=== PATIENT | female | born 1975 | race Caucasian/White ===

== ENCOUNTER 2018-03-31 06:42 | Day surgery (SDC) | payer OTHER ==
[2018-03-27 17:20] VITALS: BMI 44.6
[~2018-03-31 06:42] MED LIST: GENTAMICIN SO4 80 MG/2 ML VIAL IVPB ONE; IOHEXOL 300 MG/ML INFUS..BTL IV ONE
[2018-03-31] MEDS ORDERED: PROPOFOL 20 ML ONE ×3 (07:47→08:52)
[2018-03-31] MEDS ORDERED: fentaNYL CITRATE 250 MCG/5 ML VIAL ONE (07:48)
[2018-03-31] MEDS ORDERED: MIDAZOLAM HCL 2 MG/2 ML SINGLE DOSE VIAL ONE (07:48)
[2018-03-31] MEDS ORDERED: LIDOCAINE HCL/PF 2% SDV 5ML VIAL ONE ×2 (08:00→08:48)
[2018-03-31] MEDS ORDERED: ceFAZolin SODIUM 1 GM VIAL ONE ×2 (08:00→08:48)
[2018-03-31] MEDS ORDERED: DEXAMETHASONE SOD PHOSPHATE 4 MG/1 ML VIAL ONE ×2 (08:00→08:48)
[2018-03-31] MEDS ORDERED: SODIUM CHLORIDE 0.9% P/F 10 ML VIAL IJ ONE ×2 (08:00→08:48)
[2018-03-31] MEDS ORDERED: KETOROLAC TROMETHAMINE 30 MG/1 ML VIAL ONE (08:00)
[2018-03-31] MEDS ORDERED: ceFAZolin SODIUM 1 GM VIAL IVPB ONE (08:10)
[2018-03-31] MEDS ORDERED: GENTAMICIN SO4 80 MG/2 ML VIAL IVPB ONE (08:15)
[2018-03-31] MEDS ORDERED: ROCURONIUM BROMIDE 50 MG/5 ML VIAL ONE (08:15)
[2018-03-31] MEDS ORDERED: FUROSEMIDE 40 MG/4 ML INJECTABLE VIAL ONE ×3 (08:23→08:29)
[2018-03-31] MEDS ORDERED: GLYCOPYRROLATE 0.2 MG/1 ML VIAL ONE (08:34)
[2018-03-31] MEDS ORDERED: NEOSTIGMINE METHYLSULFATE 0.5 MG/1 ML - 10 ML MDV ONE (08:35)
[2018-03-31] MEDS ORDERED: oxyCODONE HCL 5 MG TABLET PO PRN ×2 (08:54→09:35)
--- NOTE | 2018-03-31 08:56 | OP ---
Operative Note - Note: Operative Date: 03/31/18 Pre-Operative Diagnosis: obstructing LUPJ stone Operation: cysto/laser litho/stent Findings: as above plus UPJ/prox ureter stricture Surgeon: Yusuf Cross Anesthesia: General Specimens Removed: stone frags Estimated Blood Loss (mls): 2 Drains & Tubes with Location: 7fr, 24cm stent Operative Report Dictated: Yes
[2018-03-31] MEDS ORDERED: ELECTROLYTE-148 SOLN 1,000 ML IV SCH (09:00)
[2018-03-31] MEDS ORDERED: ONDANSETRON 4 MG/2 ML VIAL IVPUSH PRN (09:35)
--- NOTE | 2018-03-31 09:41 | OP ---
DATE OF OPERATION: 03/31/2018 PROCEDURE: Cystoscopy, retrograde pyelogram, ureteroscopy, laser lithotripsy, stone basketing, stent placement. SURGEON: Isis Ndiaye MD INDICATION: Patient is a 42-year-old female with an obstructing 1-cm stone at the right UPJ. She will be taken to the OR for ureteroscopy and laser lithotripsy after reviewing treatment options. Risks, benefits, and alternatives were discussed in detail. Informed consent was obtained. DESCRIPTION OF PROCEDURE: Patient was taken to the OR and placed supine on the table. After cardiac monitoring was administered and general anesthesia was established, she was prepped and draped in dorsal lithotomy position. She was given 2 g of Ancef and 1 mL of gentamycin. The cystoscope was introduced without difficulty and urethra was normal. The bladder was visualized. No tumors or stones were noted in the bladder. At this point, attention was turned to the left ureteral orifice. It was intubated with ureteral catheter. Contrast was injected for retrograde pyelogram. There was hydronephrosis to the UPJ where a stone was seen obstructing. A guidewire was advanced beyond the stone. A dual lumen catheter was advanced to the and guidewire was advanced to the level of the stone. Dual lumen catheter was removed, and over one of the wires, a flexible ureteroscope was advanced to the level of the stone. The stone was approximately 1 cm in size and seen impacting at the UPJ. Using the 365-micron laser fiber, the stone was pulverized to fine dust and 2- to 3-mm fragments. Some of the fragments were then removed with the [facility] evacuator. Inspection of the UPJ area revealed narrowing and stricture but I was able to negotiate the scope beyond this area into the kind, and there was nothing abnormal within the kidney. The ureteroscope was then removed, and a 7-Danish 24-cm double pigtail stent was then advanced in a monorail fashion. Fluoroscopy confirmed the stent being in position with a proximal curl in the upper pole in the left side and the distal curl in the bladder. The patient was then awoken from anesthesia, transferred to recovery in stable condition. There were no complications. Estimated blood loss was minimal. ISIS NDIAYE M.D. [id number]
[2018-03-31] MEDS ORDERED: LACTATED RINGERS SOLUTION 1,000 ML IV SCH (09:45)
[2018-03-31] MEDS ORDERED: ACETAMINOPHEN 325 MG TABLET (FP) ONE (11:08)
[2018-03-31] MEDS ORDERED: ACETAMINOPHEN 325 MG TABLET (FP) PO ONE (11:12)
[2018-03-31 12:37] VITALS: BP 136/78; PULSE 76; TEMP 98.4
--- NOTE | 2018-04-01 09:08 | PATH ---
Surgical Pathology Report Patient Name: JOSE MANRIQUE [facility]. Rec. #: [id number] /Age/Gender: 1975 (Age: 42) / F Account: [id number] Location: [facility] Taken: 03/31/2018 Received: 03/31/2018 Reported: 04/01/2018 Physicians: Yusuf Cross M.D. Specimen(s) Received LEFT URETERAL CALCULI Clinical History Left ureteral stone Final Diagnosis URETERAL STONE, LEFT, LITHOTRIPSY AND STONE BASKETING: URETERAL CALCULI. MACROSCOPIC DIAGNOSIS. Electronically Signed Maria T Menchaca M.D. Gross Description Received fresh labeled "left ureteral stone," are 2 adams, irregular calculi averaging 0.3 cm in greatest dimension. The specimen is sent for chemical analysis. /03/31/201803/31/2018
[2018-04-07 14:14] LABS: CA OXALATE MONOHYDR. 94 % (.); WEIGHT 21.1 mg (.)
== END 2018-03-31 12:40 | disposition home or self-care (01) ==
LOC: JASU-SURG 06:42
PROVIDERS: ATTEND Urology
PROC: 0TF78ZZ Fragmentation in Left Ureter, Via Natural or Artificial Opening Endoscopic (ICD-10-PCS; principal; 2018-03-31 07:30)
PROC: 0T778DZ Dilation of Left Ureter with Intraluminal Device, Via Natural or Artificial Opening Endoscopic (ICD-10-PCS; 2018-03-31 07:30)
DX: N20.1 Calculus of ureter (principal)
CPT/HCPCS: 36415; 76000-TC-FY; 82360; 84703; 88300-TC; 94760

== ENCOUNTER 2024-12-03 13:57 | Observation (INO) | payer OTHER ==
[2024-12-03 15:16] LABS: EPI CELLS 14 /uL (0-25.1); HYALINE CASTS 1 /uL (0-3.1); URINE APPEARANCE TURBID; URINE BACTERIA 1011 /uL (0-1359); URINE BILIRUBIN NEGATIVE (NEGATIVE); URINE COLOR YELLOW; URINE GLUCOSE (UA) NEGATIVE (NEGATIVE); URINE KETONE NEGATIVE (NEGATIVE); URINE LEUK ESTERASE 1+ (NEGATIVE); URINE NITRITE NEGATIVE (NEGATIVE); URINE PROTEIN NEGATIVE (NEGATIVE); URINE RBC 28 /uL (0-23.9); URINE UROBILINOGEN 0.2 mg/dL (0.2-1.0); URINE WBC 93 /uL (0-25.8)
[2024-12-03 15:19] LABS: ABSOLUTE IMMATURE GRANULOCYTES 0.01 x10^3/uL (0.0-0.031); BASOPHILS # 0.04 x10^3/uL (0.01-0.08); EOSINOPHIL % 3.7 % (0.7-5.8); EOSINOPHILS # 0.25 x10^3/uL (0.04-0.36); HEMATOCRIT 39.5 % (34.1-44.9); HEMOGLOBIN 12.4 g/dL (11.2-15.7); MCHC 31.4 g/dl (32.2-35.5); MEAN PLT VOLUME 9.7 fl (9.4-12.3); MONOCYTE # 0.32 x10^3/uL (0.24-0.86); MONOCYTE % 4.8 % (4.7-12.5); PLATELET COUNT 234 x10^3/uL (182-369); RDW 12.6 % (12.2-17.1)
[2024-12-03 15:27] LABS: INR 1.13 (0.83-1.09); PROTHROMBIN TIME (PATIENT) 12.3 SEC (9.7-13.0)
[2024-12-03 15:29] LABS: ACTIVATED PTT 32.6 SECONDS (25.2-36.5)
[2024-12-03 15:41] LABS: POTASSIUM 4.6 mmol/L (3.5-5.1)
[2024-12-03 15:43] LABS: BLOOD UREA NITROGEN 18.8 mg/dL (7-18); CALCIUM 10.6 mg/dL (8.5-10.1)
[2024-12-03 15:45] LABS: CREATININE 1.1 mg/dL (0.55-1.3)
[2024-12-03 15:47] LABS: BILIRUBIN,TOTAL 0.5 mg/dL (0.2-1); TOT PROT 8.2 g/dl (6.4-8.2)
[2024-12-03] MEDS ORDERED: TRIMETHOPRIM IVPB ONE (16:00)
[2024-12-03] MEDS ORDERED: WATER IVPB ONE (16:00)
[2024-12-03] MEDS ORDERED: SULFAMETHOXAZOLE IVPB ONE (16:00)
[2024-12-03] MEDS ORDERED: DEXTROSE 5% IVPB ONE (16:00)
[2024-12-03] MEDS ORDERED: ACETAMINOPHEN 1000 MG/100 ML BAG IVPB PRN (17:13)
[2024-12-03] MEDS ORDERED: ONDANSETRON 4 MG/2 ML VIAL IVPUSH PRN ×4 (17:14→23:31)
[2024-12-03 17:20] VITALS: BMI 45.7
[2024-12-03] MEDS: INSULIN ASPART SLIDING SCALE (NOVOLOG) 1 VIAL SQ SCH (17:25)
[2024-12-03] MEDS: SULFAMETHOXAZOLE IVPB ONE (17:32)
[2024-12-03] MEDS: TRIMETHOPRIM IVPB ONE (17:32)
[2024-12-03] MEDS: DEXTROSE 5% IVPB ONE (17:32)
[2024-12-03] MEDS: WATER IVPB ONE (17:32)
[2024-12-03] MEDS: SULFAMETHOXAZOLE 80 MG/TRIMETHOPRIM 16 MG/ML VIAL IVPB ONE (17:36)
[2024-12-03 18:10] LABS: HCV DIAGNOSTIC IN-HOUSE W/RFLX NON-REACTIVE (NONREACTIVE)
[2024-12-03 18:12] LABS: HIV INTERPRETATION NEGATIVE (NEGATIVE)
[2024-12-03] MEDS ORDERED: PROPOFOL 20 ML ONE (22:13)
[2024-12-03] MEDS ORDERED: MIDAZOLAM HCL 2 MG/2 ML SINGLE DOSE VIAL ONE (22:14)
[2024-12-03] MEDS ORDERED: LACTATED RINGERS SOLUTION 1,000 ML IV SCH (22:15)
[2024-12-03] MEDS: LACTATED RINGERS SOLUTION 1,000 ML IV SCH (23:55)
[2024-12-04 00:30] VITALS: RESP 18
[2024-12-04] MEDS ORDERED: DEXTROSE 5% IVPB ONE (04:00)
[2024-12-04] MEDS ORDERED: TRIMETHOPRIM IVPB ONE (04:00)
[2024-12-04] MEDS ORDERED: SULFAMETHOXAZOLE IVPB ONE (04:00)
[2024-12-04] MEDS ORDERED: WATER IVPB ONE (04:00)
[2024-12-04] MEDS ORDERED: SULFAMETHOXAZOLE 80 MG/TRIMETHOPRIM 16 MG/ML VIAL IVPB ONE (04:00)
[2024-12-04] MEDS: ACETAMINOPHEN 1000 MG/100 ML BAG IVPB PRN (04:50)
[2024-12-04] MEDS: INSULIN ASPART SLIDING SCALE (NOVOLOG) 1 VIAL SQ SCH (06:27)
[2024-12-04 08:39] LABS: ABSOLUTE IMMATURE GRANULOCYTES 0.02 x10^3/uL (0.0-0.031); BASOPHILS # 0.02 x10^3/uL (0.01-0.08); EOSINOPHIL % 0.2 % (0.7-5.8); EOSINOPHILS # 0.01 x10^3/uL (0.04-0.36); HEMATOCRIT 39.8 % (34.1-44.9); HEMOGLOBIN 12.1 g/dL (11.2-15.7); MCHC 30.4 g/dl (32.2-35.5); MEAN CELL VOLUME 84.5 fl (79.4-94.8); MEAN PLT VOLUME 10.5 fl (9.4-12.3); MONOCYTE # 0.15 x10^3/uL (0.24-0.86); MONOCYTE % 2.4 % (4.7-12.5); PLATELET COUNT 230 x10^3/uL (182-369); RDW 12.9 % (12.2-17.1)
[2024-12-04 09:07] LABS: POTASSIUM 4.9 mmol/L (3.5-5.1)
[2024-12-04 09:19] LABS: CALCIUM 10.3 mg/dL (8.5-10.1)
[2024-12-04 09:20] LABS: BLOOD UREA NITROGEN 19.7 mg/dL (7-18); MAGNESIUM 1.5 mg/dL (1.8-2.4)
[2024-12-04 09:23] LABS: CREATININE 1.4 mg/dL (0.55-1.3); PHOSPHOROUS 2.5 mg/dL (2.5-4.9)
[2024-12-04 09:24] LABS: BILIRUBIN,TOTAL 0.4 mg/dL (0.2-1); TOT PROT 8.3 g/dl (6.4-8.2)
[2024-12-04] MEDS ORDERED: LOSARTAN POTASSIUM 25 MG TABLET PO SCH (10:00)
[2024-12-04] MEDS: LOSARTAN POTASSIUM 25 MG TABLET PO SCH (10:51)
[2024-12-04] MEDS: MAGNESIUM OXIDE 400 MG TABLET (FP) PO ONE (12:07)
[2024-12-04 15:10] VITALS: BP 121/61; PULSE 70; TEMP 97.9
== END 2024-12-04 17:11 | disposition home or self-care (01) ==
LOC: JER 13:57 → JERBED 16:00 → J8W 16:21
PROVIDERS: ADMIT Student in an Organized Health Care Education/Training Program; ATTEND Nurse Practitioner Family
PROC: 3E03329 Introduction of Other Anti-infective into Peripheral Vein, Percutaneous Approach (ICD-10-PCS; 2024-12-03)
PROC: 3E033NZ Introduction of Analgesics, Hypnotics, Sedatives into Peripheral Vein, Percutaneous Approach (ICD-10-PCS; 2024-12-03)
PROC: 3E013VG Introduction of Insulin into Subcutaneous Tissue, Percutaneous Approach (ICD-10-PCS; 2024-12-03)
PROC: 3E0337Z Introduction of Electrolytic and Water Balance Substance into Peripheral Vein, Percutaneous Approach (ICD-10-PCS; 2024-12-03)
PROC: BT1FZZZ Fluoroscopy of Left Kidney, Ureter and Bladder (ICD-10-PCS; principal; 2024-12-03 18:00)
DX: N13.1 Hydronephrosis with ureteral stricture, not elsewhere classified (principal); N20.0 Calculus of kidney; E11.9 Type 2 diabetes mellitus without complications; E83.52 Hypercalcemia; G47.33 Obstructive sleep apnea (adult) (pediatric); R74.01 Elevation of levels of liver transaminase levels
CPT/HCPCS: 36415; 71046-TC-FY; 76000-TC-FY; 80053; 81003; 82962; 83735; 84100; 85025; 85610; 85730; 86803; 86850; 86900; 86901; 87086; 87389; 93005; 93010; 94760; 99285-25; C1769; C2617; G0378; J0131